=== PATIENT | female | born 1955 | race Caucasian/White ===

== ENCOUNTER → 2017-11-06 | Outpatient (CLI) | payer BC ==
[~2017-11-06] MED LIST: OPTIRAY 320 IV PRN
--- NOTE | 2017-11-06 16:32 | DIAGNOSTIC IMAGING REPORT ---
CT ANGIOGRAM OF THE CHEST CLINICAL HISTORY: Dyspnea. Bilateral leg pain. COMPARISON STUDY: No priors. TECHNIQUE: Following the IV administration of 97 cc of Optiray 320, CT angiogram of the chest was performed from the upper abdomen to the thoracic inlet utilizing the pulmonary embolus protocol. Images are reviewed in the axial, sagittal, and coronal planes. 3-D MIPS images are created and assessed. IV contrast was administered without complication. A dose lowering technique was utilized adhering to the principles of ALARA. CT DOSE: 230.29 mGy.cm FINDINGS: Thyroid: Imaged portions of the thyroid gland are normal in size and attenuation. Thoracic aorta: The thoracic aorta is normal in caliber and demonstrates standard 3-vessel arch anatomy. No dissection is seen. Pulmonary vasculature: The pulmonary trunk is normal in caliber. There are no filling defects identified in main, lobar, or segmental pulmonary branches to suggest pulmonary embolus. Heart: The heart is normal in size and without pericardial effusion. Lungs and pleural spaces: The lungs and pleural spaces are clear. The trachea and central airways are patent. Mediastinum: There is no mediastinal lymphadenopathy. [place]iz[place]: Clear. Axillae: There is no axillary lymphadenopathy. Upper abdomen: Partially visualized upper abdominal viscera is within normal limits. Skeletal structures: The skeletal structures are osteopenic. Degenerative change is noted in the thoracic spine. No lytic or blastic bony lesions are seen. IMPRESSION: 1. There is no evidence of pulmonary embolus in the main, lobar, or segmental pulmonary arteries. 2. The lungs are clear. Electronically signed by: Varinder Montanez M.D. 11/06/2017 4:31 PM Dictated Date/Time: 11/06/2017 4:26 PM
--- NOTE | 2017-11-06 17:16 | DIAGNOSTIC IMAGING REPORT ---
BILATERAL LOWER EXTREMITY VENOUS DOPPLER CLINICAL HISTORY: Bilateral lower extremity swelling. COMPARISON STUDY: No previous studies for comparison. TECHNIQUE: Sonography of the deep venous system of the bilateral lower extremities was performed. Compression and augmentation were evaluated. FINDINGS: The bilateral common femoral, superficial femoral and popliteal veins were compressible. Augmentation was normal. Flow was shown within the deep calf vessels. IMPRESSION: No evidence of deep venous thrombus within the bilateral lower extremities. Electronically signed by: Emmett Scott M.D. 11/06/2017 5:14 PM Dictated Date/Time: 11/06/2017 5:14 PM
[2017-11-06 18:07] LABS: BASO % 0.3 %; BASO ABS # 0.02 K/uL (0-0.2); EOS % 3.1 %; EOS ABS # 0.19 K/uL (0-0.5); HEMATOCRIT 45.4 % (37-47); HEMOGLOBIN 15.5 g/dL (12.0-16.0); LYMPH % 18.4 %; LYMPH ABS # 1.14 K/uL (1.2-3.4); MEAN CELL VOLUME 91.2 fL (80-100); MEAN CORPUSCULAR HEMOGLOBIN 31.1 pg (25-34); MEAN CORPUSCULAR HGB CONC 34.1 g/dl (32-36); MEAN PLATELET VOLUME 9.6 fL (7.4-10.4); MONO % 6.4 %; NEUT % 71.8 %; NEUT ABS # 4.46 K/uL (1.4-6.5); PLATELET COUNT 243 K/uL (130-400); RED CELL DISTRIBUTION WIDTH CV 13.1 % (11.5-14.5); RED CELL DISTRIBUTION WIDTH SD 43.5 fL (36.4-46.3); WHITE BLOOD COUNT 6.21 K/uL (4.8-10.8)
[2017-11-06 18:31] LABS: CKMB < 1.0 ng/ml (0.5-3.6)
== END | disposition home or self-care (01) ==
LOC: C.CTS 16:05
DX: R06.00 Dyspnea, unspecified (principal); M79.606 Pain in leg, unspecified

== ENCOUNTER → 2017-11-12 | Outpatient (CLI) | payer BC ==
--- NOTE | 2017-11-13 12:53 | PULMONARY FUNCTION TEST ---
Spirometry shows a normal FVC and FEV1 with a mildly decreased FEV1/FVC ratio. This is borderline for mild obstruction. Repeat study done following bronchodilators showed significant improvement in small airways function only. Cannot exclude small airways disease. Lung volumes are normal. Diffusion capacity is normal at 108%.
== END | disposition home or self-care (01) ==
LOC: C.RC 10:53
DX: R00.2 Palpitations (principal); R06.00 Dyspnea, unspecified; R55 Syncope and collapse

== ENCOUNTER → 2017-11-19 | Outpatient (CLI) | payer BC ==
--- NOTE | 2017-11-19 19:35 | EXERCISE STRESS ECHO ---
*NOTICE TO RECEIVING LIBERTARIAN AGENCY This information is strictly Confidential and protected under [place] law. [place] law prohibits you from making any further disclosure of this information unless further disclosure is expressly permitted by the written consent of the person to whom it pertains or is authorized by law. A general authorization for the release of medical or other information is not sufficient for this purpose. Hospital accepts no responsibility if the information is made available to any other person, INCLUDING THE PATIENT. Interpretation Summary * Name: DARELL RANDHAWA Study Date: 11/19/2017 09:28 AM BP: 134/72 mmHg * Patient Location: [facility] HR: 76 * : 1955 (M/d/yyyy) Gender: Female Height: 64 in * Age: 61 yrs Ethnicity: [place] Weight: 156 lb * Ordering Physician: Brody Gustafson * Referring Physician: Brody Gustafson D.O. * Performed By: Tito Vázquez RCS * * Reason For Study: Dyspnea, Near Syncope * BSA: 1.8 m2 * -- Conclusions -- * 1. Negative exercise stress echo for ischemia at 103% MPHR. * 2. Negative stress ECG for ischemia. * 3. Average functional capacity. Exercised 6:00 min, acheiving 7 METS. * 4. No exercise induced chest pain. Normal hemodynamic response to exercise. * 5. Normal resting LV size and function. EF 55-60%. Normal RV size and function. No significant valvular pathology. * 6. No prior studies for comparison. Procedure Details * ECHOEX, CPT #[id number] * ECHO DOPPLER, CPT #[id number] * ECHO COLOR FLOW, CPT #[id number] Left Ventricular Findings with Stress * This was essentially a normal study. Left Ventricle * The left ventricle is grossly normal size. * There is normal left ventricular wall thickness. * Ejection Fraction = 55-60%. * Resting wall motion: Normal. Stress wall motion: Appropriate increase in Left ventricular systolic function and decrease in cavity size. No stress induced segmental wall motion abnormalities. Right Ventricle * The right ventricle is grossly normal size. * The right ventricular systolic function is normal as assessed by tricuspid annular plane systolic excursion (TAPSE) (normal >1.5 cm). Atria * The left atrial size is normal. * Borderline right atrial enlargement. Mitral Valve * The mitral valve is grossly normal. * There is no mitral valve stenosis. * Significant mitral regurgitation is absent. Tricuspid Valve * There is trace tricuspid regurgitation. Aortic Valve * The aortic valve opens well. * The aortic valve is trileaflet. * No hemodynamically significant valvular aortic stenosis. * There is no significant aortic regurgitation. Pulmonic Valve * The pulmonary valve is inadequately visualized, but the Doppler data is adequate for interpretation. * Trace pulmonic valvular regurgitation. Great Vessels * The aortic root and proximal ascending aorta are normal sized. Pericardium * There is no pericardial effusion. Stress Parameters * Normal baseline electrocardiogram. * Stress ECG: No ST changes. No arrhythmias. * Arrhythmia induced during stress: occasional PVC's. * Brief atrial runs in recovery * Rest heart rate was '76' BPM. * Rest blood pressure was '134/72' * Maximum heart rate achieved was 166 bpm. * Maximum heart rate was 103 % of maximum age-predicted heart rate. * Maximum blood pressure was '177/57' * Total exercise time was '6:00' * Maximum exercise MET level achieved was '7.0' METS * Maximum treadmill speed was '2.5' miles per hour. * Maximum treadmill elevation was '12'% grade. * Exercise was terminated due to 'target heart rate achieved' * Normal blood pressure response to exercise. Left Ventricular Findings with Stress * The study was technically good with many images being of high quality. MMode 2D Measurements and Calculations IVSd 0.79 cm IVSs 1.1 cm LVIDd 3.8 cm LVIDs 2.5 cm LVPWd 0.83 cm LVPWs 1.0 cm IVS/LVPW 0.95 FS 33.7 % EDV(Teich) 63.3 ml ESV(Teich) 23.3 ml EF(Teich) 63.3 % EDV(cubed) 56.4 ml ESV(cubed) 16.4 ml EF(cubed) 70.9 % % IVS thick 40.3 % % LVPW thick 23.5 % LV mass(C)d 88.3 grams LV mass(C)dI 50.2 grams/m\S\2 LV mass(C)s 71.6 grams LV mass(C)sI 40.7 grams/m\S\2 SV(Teich) 40.1 ml SI(Teich) 22.8 ml/m\S\2 SV(cubed) 40.0 ml SI(cubed) 22.7 ml/m\S\2 Ao root diam 3.1 cm Ao root area 7.5 cm\S\2 ACS 1.4 cm LA dimension 3.3 cm asc Aorta Diam 2.3 cm LA/Ao 1.1 EDV(MOD-sp4) 67.0 ml ESV(MOD-sp4) 31.0 ml EF(MOD-sp4) 53.7 % EDV(MOD-sp2) 90.0 ml ESV(MOD-sp2) 38.0 ml EF(MOD-sp2) 57.8 % SV(MOD-sp4) 36.0 ml SI(MOD-sp4) 20.5 ml/m\S\2 SV(MOD-sp2) 52.0 ml SI(MOD-sp2) 29.5 ml/m\S\2 Doppler Measurements and Calculations MV E max tomas 103.0 cm/sec MV A max tomas 77.1 cm/sec MV E/A 1.3 MV P1/2t max tomas 117.8 cm/sec MV P1/2t 86.2 msec MVA(P1/2t) 2.6 cm\S\2 MV dec slope 400.4 cm/sec\S\2 MV dec time 0.20 sec Ao V2 max 92.5 cm/sec Ao max PG 3.4 mmHg Ao max PG (full) 0.59 mmHg LV V1 max PG 2.8 mmHg LV V1 max 84.1 cm/sec PA V2 max 85.0 cm/sec PA max PG 2.9 mmHg PI max tomas 170.4 cm/sec PI max PG 11.7 mmHg PI dec slope 278.1 cm/sec\S\2 PI P1/2t 179.5 msec TR max tomas 192.8 cm/sec
== END | disposition home or self-care (01) ==
LOC: C.CPL 09:21
DX: R06.00 Dyspnea, unspecified (principal); R55 Syncope and collapse